=== PATIENT | female | born 1980 | race Two or more races ===

== ENCOUNTER 2025-08-08 12:21 | Outpatient (CLI) | payer OTHER | END 2025-08-08 12:37 | disposition home or self-care (01) | LOC: RAD 12:21 → MRI 12:21 | DX: M25.562 Pain in left knee (principal); Z12.31 Encounter for screening mammogram for malignant neoplasm of breast; Z13.220 Encounter for screening for lipoid disorders; Z13.29 Encounter for screening for other suspected endocrine disorder; Z13.89 Encounter for screening for other disorder; Z12.11 Encounter for screening for malignant neoplasm of colon; Z12.4 Encounter for screening for malignant neoplasm of cervix; Z13.0 Encounter for screening for diseases of the blood and blood-forming organs and certain disorders involving the immune mechanism; Z13.1 Encounter for screening for diabetes mellitus | CPT/HCPCS: 73721 ==